=== PATIENT | male | born 1970 | race Caucasian/White ===

== ENCOUNTER 2018-03-28 07:28 | Emergency (ER) | payer OTHER ==
[~2018-03-28] VITALS: Ht 193 cm; Wt 126.6 kg
[2018-03-28 08:28] LABS: ABSOLUTE BASOPHILS 0.1 thou/uL (0.0-0.2); ABSOLUTE EOSINOPHILS 0.5 thou/uL (0.0-0.7); ABSOLUTE LYMPHOCYTES 1.2 thou/uL (0.8-5.3); ABSOLUTE MONOCYTES 0.9 thou/uL (0.0-1.2); ABSOLUTE NEUTROPHILS 4.8 thou/uL (1.6-8.1); BASOPHILS 0.9 %; EOSINOPHILS 6.4 %; HEMATOCRIT 41.6 % (42.0-52.0); HEMOGLOBIN 14.4 gm/dL (14.0-18.0); LYMPHOCYTES 15.9 %; MCHC 34.6 g/dL (28.0-37.0); MONOCYTES 12.3 %; MPV 7.1 fl. (7.2-11.1); NUCLEATED RBCS 0 /100WBC; PLATELET COUNT* 135 thou/uL (150-400); POLYS 64.5 %; RBC 3.89 mil/uL (4.50-6.00); WBC 7.4 thou/uL (4.0-11.0)
[2018-03-28 08:33] LABS: URINE BILIRUBIN NEGATIVE (Negative); URINE BLOOD 1+ (Negative); URINE CLARITY CLEAR; URINE COLOR YELLOW; URINE GLUCOSE-RANDOM NEGATIVE (Negative); URINE KETONES NEGATIVE (Negative); URINE LEUKOCYTES-REFLEX NEGATIVE (Negative); URINE NITRITE-REFLEX NEGATIVE (Negative); URINE PROTEIN 1+ (Negative); URINE SPECIFIC GRAVITY 1.025 (1.005-1.030); URINE UROBILINOGEN 0.2 E.U./dl (0.2-1.0)
[2018-03-28 08:47] LABS: HYALINE CASTS 4-10 Moderate /LPF (None Seen); MUCUS >6 Heavy strn/LPF (None Seen); SQUAMOUS 0-3 Few /LPF (0-3)
[2018-03-28 08:48] LABS: BACTERIA-REFLEX 1-9 Few /HPF (None Seen); CRYSTALS None Seen /LPF (None Seen); URINE RBC 3-10 Few /HPF (0-2); URINE WBC-REFLEX 0-5 Rare /HPF (0-5)
[2018-03-28 08:52] LABS: ANION GAP 10 mmol/L (7-16); BUN 10 mg/dL (7-18); CALCIUM 8.2 mg/dL (8.5-10.1); CHLORIDE 104 mmol/L (98-107); CO2 27 mmol/L (21-32); CREATININE 0.9 mg/dL (0.6-1.3); GLUCOSE 95 mg/dL (70-99); POTASSIUM 3.7 mmol/L (3.5-5.1); SODIUM 141 mmol/L (136-145)
[2018-03-28 08:59] LABS: ALBUMIN 3.7 g/dL (3.4-5.0); ALKALINE PHOSPHATASE 89 U/L (46-116); AMMONIA 15 umol/L (11-32); LIPASE 123 U/L (73-393); SGOT 86 U/L (15-37); SGPT 64 U/L (30-65); TOTAL BILIRUBIN 0.6 mg/dL (<0.1-1.0); TOTAL PROTEIN 7.5 g/dL (6.4-8.2); TROPONIN-I LEVEL <0.06 ng/mL (<0.06)
[2018-03-28] MEDS ORDERED: PREDNISONE 20 M20 MG PO (11:33)
[2018-03-28] MEDS ORDERED: LISINOPRIL-HCT1 EAC1 PO (11:35)
[2018-03-28 11:40] VITALS: BP 188/104
== END 2018-03-28 11:40 | disposition home or self-care (01) ==
LOC: M.ERS 07:28
PROVIDERS: Personal Emergency Response Attendant
DX: I10 Essential (primary) hypertension (principal); R21 Rash and other nonspecific skin eruption; R11.2 Nausea with vomiting, unspecified; F41.9 Anxiety disorder, unspecified; F32.9 Major depressive disorder, single episode, unspecified; Z72.0 Tobacco use

== ENCOUNTER 2021-05-15 08:26 | Inpatient (IN) | payer OTHER ==
[~2021-05-15] VITALS: Ht 193 cm; Wt 117.9 kg
[~2021-05-15 08:26] MED LIST: LISINOPRIL-HCT1 EAC1 PO; PREDNISONE 20 M20 MG PO
[2021-05-15 08:43] VITALS: BP 132/80
[2021-05-15] MEDS ORDERED: NORVASC5 MG PO (08:47)
[2021-05-15] MEDS ORDERED: CEPHALEXIN500 MG PO (09:47)
[2021-05-15] MEDS ORDERED: NORCO5 PO (09:47)
[2021-05-15] MEDS ORDERED: BACTRIM DS TAB1 EACH PO (09:47)
[2021-05-15 09:58] LABS: ABSOLUTE BASOPHILS 0.1 thou/uL (0.0-0.2); ABSOLUTE MONOCYTES 1.2 thou/uL (0.0-1.2); ABSOLUTE NEUTROPHILS 9.9 thou/uL (1.6-8.1); BASOPHILS 0.5 %; EOSINOPHILS 0.2 %; HEMATOCRIT 43.8 % (42.0-52.0); HEMOGLOBIN 15.1 gm/dL (14.0-18.0); LYMPHOCYTES 7.9 %; MCH 36.2 pg (26.0-34.0); MCHC 34.6 g/dL (28.0-37.0); MCV 104.7 fL (80.0-100.0); MONOCYTES 9.5 %; MPV 6.9 fl. (7.2-11.1); NUCLEATED RBCS 0 /100WBC; PLATELET COUNT* 130 thou/uL (150-400); POLYS 81.9 %; RBC 4.18 mil/uL (4.50-6.00); RDW-CV 13.2 % (10.5-14.5); WBC 12.1 thou/uL (4.0-11.0)
[2021-05-15 10:17] LABS: CALCIUM 8.5 mg/dL (8.5-10.1); CREATININE 1.5 mg/dL (0.6-1.3); POTASSIUM 3.8 mmol/L (3.5-5.1)
[2021-05-15 10:21] LABS: ALBUMIN 3.7 g/dL (3.4-5.0); TOTAL BILIRUBIN 1.6 mg/dL (<0.1-1.0); TOTAL PROTEIN 8.1 g/dL (6.4-8.2)
--- NOTE | 2021-05-15 11:22 | EKG ---
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
[2021-05-15 12:05] VITALS: BP 135/81
[2021-05-15 23:49] VITALS: BP 189/97
[2021-05-16] VITALS (7 sets, daily range): BP systolic 117–191; BP diastolic 55–108
[2021-05-16 04:35] LABS: HEMATOCRIT 36.1 % (42.0-52.0); MCH 36.7 pg (26.0-34.0); MCV 104.7 fL (80.0-100.0); MPV 7.6 fl. (7.2-11.1); RBC 3.45 mil/uL (4.50-6.00); RDW-CV 12.9 % (10.5-14.5); WBC 9.4 thou/uL (4.0-11.0)
[2021-05-16 04:58] LABS: ALBUMIN 2.9 g/dL (3.4-5.0); CALCIUM 7.9 mg/dL (8.5-10.1); CREATININE 1.1 mg/dL (0.6-1.3); MAGNESIUM 1.8 mg/dL (1.8-2.4); POTASSIUM 4.3 mmol/L (3.5-5.1); TOTAL PROTEIN 6.6 g/dL (6.4-8.2)
[2021-05-16 04:59] LABS: HEMOGLOBIN 12.6 gm/dL (14.0-18.0)
[2021-05-17] VITALS (7 sets, daily range): BP systolic 129–180; BP diastolic 85–108
[2021-05-17 12:49] LABS: HEMATOCRIT 37.1 % (42.0-52.0); HEMOGLOBIN 12.5 gm/dL (14.0-18.0); MCH 36.3 pg (26.0-34.0); MCHC 33.7 g/dL (28.0-37.0); MCV 107.6 fL (80.0-100.0); MPV 7.5 fl. (7.2-11.1); RBC 3.45 mil/uL (4.50-6.00)
[2021-05-17 13:13] LABS: ALBUMIN 2.8 g/dL (3.4-5.0); CREATININE 0.9 mg/dL (0.6-1.3); POTASSIUM 3.8 mmol/L (3.5-5.1); TOTAL BILIRUBIN 1.6 mg/dL (<0.1-1.0); TOTAL PROTEIN 6.2 g/dL (6.4-8.2)
[2021-05-18 02:30] VITALS: BP 158/98
[2021-05-18 04:50] VITALS: BP 147/82
[2021-05-18 08:37] LABS: HEMATOCRIT 35.6 % (42.0-52.0); MCHC 33.6 g/dL (28.0-37.0); MCV 107.3 fL (80.0-100.0); MPV 7.6 fl. (7.2-11.1); RBC 3.32 mil/uL (4.50-6.00); RDW-CV 12.9 % (10.5-14.5); WBC 8.1 thou/uL (4.0-11.0)
[2021-05-18 09:02] LABS: ALBUMIN 2.7 g/dL (3.4-5.0); CALCIUM 7.7 mg/dL (8.5-10.1); CREATININE 1.1 mg/dL (0.6-1.3); MAGNESIUM 1.6 mg/dL (1.8-2.4); POTASSIUM 3.9 mmol/L (3.5-5.1); TOTAL BILIRUBIN 1.4 mg/dL (<0.1-1.0); TOTAL PROTEIN 6.2 g/dL (6.4-8.2)
[2021-05-18 09:05] VITALS: BP 138/87
[2021-05-18 11:45] VITALS: BP 135/89
[2021-05-18 15:49] VITALS: BP 130/84
[2021-05-18 19:58] VITALS: BP 127/77
[2021-05-19] VITALS (8 sets, daily range): BP systolic 136–153; BP diastolic 89–103
[2021-05-19 05:53] LABS: HEMATOCRIT 35.7 % (42.0-52.0); MCH 36.1 pg (26.0-34.0); MCHC 33.7 g/dL (28.0-37.0); MPV 7.9 fl. (7.2-11.1); RBC 3.33 mil/uL (4.50-6.00); WBC 8.3 thou/uL (4.0-11.0)
[2021-05-19 06:14] LABS: ALBUMIN 2.7 g/dL (3.4-5.0); CREATININE 1.2 mg/dL (0.6-1.3); MAGNESIUM 1.5 mg/dL (1.8-2.4); POTASSIUM 3.9 mmol/L (3.5-5.1); TOTAL BILIRUBIN 1.1 mg/dL (<0.1-1.0); TOTAL PROTEIN 6.2 g/dL (6.4-8.2)
[2021-05-19] MEDS ORDERED: TRAMADOL 50 MG50 MG PO (10:27)
[2021-05-19] MEDS ORDERED: SSD25 GM TOP (10:27)
[2021-05-19] MEDS ORDERED: NORVASC5 MG PO (10:27)
[2021-05-19] MEDS ORDERED: BACTRIM DS TAB1 EACH PO (10:27)
[2021-05-19] MEDS ORDERED: METOPROLOL SUCC25 M1 PO (10:27)
[2021-05-19] MEDS ORDERED: CEPHALEXIN500 MG PO (10:27)
== END 2021-05-19 13:56 | disposition home or self-care (01) | DRG 602 ==
LOC: M.ERS 08:26 → M.TBA-ER 12:43 → M.2W 12:53 → M.TBA-ER 19:47 → M.2W 23:57
PROVIDERS: Emergency Medicine; ADMIT Internal Medicine; ATTEND Internal Medicine
DX: L03.114 Cellulitis of left upper limb (principal); R65.11 Systemic inflammatory response syndrome (SIRS) of non-infectious origin with acute organ dysfunction; N17.0 Acute kidney failure with tubular necrosis; T23.302A Burn of third degree of left hand, unspecified site, initial encounter; F10.139 Alcohol abuse with withdrawal, unspecified; F41.9 Anxiety disorder, unspecified; I10 Essential (primary) hypertension; E86.0 Dehydration; I16.0 Hypertensive urgency; F10.129 Alcohol abuse with intoxication, unspecified; D69.6 Thrombocytopenia, unspecified; Z88.8 Allergy status to other drugs, medicaments and biological substances; Z20.822 Contact with and (suspected) exposure to COVID-19; Z23 Encounter for immunization